=== PATIENT | female | born 2000 | race Caucasian/White ===

== ENCOUNTER 2019-06-03 09:04 | Day surgery (SDC) | payer OTHER ==
[~2019-06-03] VITALS: Ht 154.9 cm; Wt 50.6 kg
[~2019-06-03 09:04] MED LIST: FEXO180T72 PO; IBUP200T64 PO; NAPR-685 PO
[2019-06-03] MEDS ORDERED: LACTATED RINGERS 1,000 ML IV SCH ×2 (09:18→09:19)
[2019-06-03] MEDS ORDERED: ACETAMINOPHEN 500 MG TABLET PO ONE (09:30)
[2019-06-03] MEDS ORDERED: SCOPOLAMINE 1MG PATCH TD SCH (09:30)
[2019-06-03 09:35] VITALS: BP 122/85
[2019-06-03] MEDS ORDERED: LIDOCAINE/PF 1%-EPI 1:200K, 30 ML ONE (10:00)
[2019-06-03] MEDS ORDERED: FENTANYL PF 100 MCG/2ML ONE (10:02)
[2019-06-03] MEDS ORDERED: MIDAZOLAM 1 MG/ML, 2ML ONE (10:02)
[2019-06-03 10:14] LABS: HCG UR SG 1.025 (1.003-1.030)
[2019-06-03] MEDS ORDERED: PROPOFOL 50 ML ONE (11:43)
[2019-06-03] MEDS ORDERED: NEOSTIGMINE 1 MG/ML, 10ML ONE (12:15)
[2019-06-03] MEDS ORDERED: BUPIVACAINE/PF 0.5% ONE (12:15)
[2019-06-03] MEDS ORDERED: DEXAMETHASONE 4 MG/ML, 1ML ONE (12:15)
[2019-06-03] MEDS ORDERED: ROCURONIUM 10MG/ML,5ML ONE (12:15)
[2019-06-03] MEDS ORDERED: CEFAZOLIN 1,000 MG ONE (12:15)
[2019-06-03] MEDS ORDERED: ONDANSETRON 2MG/ML, 2ML ONE (12:15)
[2019-06-03] MEDS ORDERED: GLYCOPYRROLATE 0.2MG/1ML, 5ML ONE (12:15)
[2019-06-03] MEDS ORDERED: LIDOCAINE-MPF 2% ,5ML ONE (12:15)
[2019-06-03] MEDS ORDERED: PROPOFOL 10 MG/ML, 20ML ONE (12:15)
[2019-06-03] MEDS ORDERED: PROMETHAZINE 25 MG/ML, 1ML IV PRN (12:30)
[2019-06-03] MEDS ORDERED: FENTANYL PF 100 MCG/2ML IV PRN (12:30)
[2019-06-03] MEDS ORDERED: MEPERIDINE/PF 25MG/ML,1ML IVPush PRN (12:30)
[2019-06-03] MEDS ORDERED: OXYcodone 5 MG/5 ML ORAL.SOL UDC PO PRN (12:30)
[2019-06-03] MEDS ORDERED: MIDAZOLAM 1 MG/ML, 2ML IV PRN (12:30)
[2019-06-03] MEDS ORDERED: BUPIVACAINE/PF 0.25% ONE (12:47)
[2019-06-04] MEDS ORDERED: NAPROXEN 500 MG TABLET PO SCH (09:00)
[2019-06-04] MEDS ORDERED: LORATADINE 10 MG TABLET PO SCH (09:00)
== END 2019-06-03 14:50 | disposition home or self-care (01) ==
LOC: OUT 09:04
PROVIDERS: ATTEND Orthopaedic Surgery
DX: M75.32 Calcific tendinitis of left shoulder (principal); M75.42 Impingement syndrome of left shoulder; Z79.1 Long term (current) use of non-steroidal anti-inflammatories (NSAID); Z79.899 Other long term (current) drug therapy; Z88.2 Allergy status to sulfonamides
CPT/HCPCS: 29823; 29826; 64415; 73020; 81025; J0690; J1100; J2250; J2405; J2704; J2710; J3010; J3490; J7120; 76000